=== PATIENT | male | born 1990 | race Hispanic/Latino ===

== ENCOUNTER 2023-03-13 20:35 | Emergency (ER) | payer OTHER ==
[~2023-03-13] VITALS: Ht 172.7 cm; Wt 79.4 kg
[2023-03-13] MEDS ORDERED: ONDANSETRON 4MG INJ IVP ONE (21:30)
[2023-03-13] MEDS ORDERED: MORPHINE 2 MG SYG IVP ONE (21:30)
[2023-03-13 21:54] VITALS: BP 122/78
[2023-03-13] MEDS ORDERED: IBUP-1493 PO ×2 (22:02→22:14)
[2023-03-13] MEDS ORDERED: TRAM50TA4 PO ×2 (22:02→22:14)
[2023-03-20] MEDS ORDERED: CITA-107 PO (11:53)
[2023-03-20] MEDS ORDERED: HYDR-3421 PO (11:53)
[2023-03-20] MEDS ORDERED: ALBUTEROL IH (11:53)
== END 2023-03-13 22:35 | disposition home or self-care (01) ==
LOC: EDBD 20:35 → EDH 20:35
DX: S42.021A Displaced fracture of shaft of right clavicle, initial encounter for closed fracture (principal); V18.4XXA Pedal cycle driver injured in noncollision transport accident in traffic accident, initial encounter; Y93.55 Activity, bike riding; Y92.89 Other specified places as the place of occurrence of the external cause; Y99.8 Other external cause status
CPT/HCPCS: 99284; 96374; 96375; 73000; 73090; 73060; 73030; J2270; J2405; 29105

== ENCOUNTER 2023-03-18 11:25 | Emergency (ER) | payer OTHER ==
[~2023-03-18] VITALS: Ht 172.7 cm; Wt 83.9 kg
[~2023-03-18 11:25] MED LIST: IBUP-1493 PO; TRAM50TA4 PO
[2023-03-18 15:41] VITALS: BP 130/80
[2023-03-20] MEDS ORDERED: ALBUTEROL IH (11:53)
[2023-03-20] MEDS ORDERED: CITA-107 PO (11:53)
[2023-03-20] MEDS ORDERED: HYDR-3421 PO (11:53)
== END 2023-03-18 15:43 | disposition home or self-care (01) ==
LOC: EDH 11:25
DX: S09.8XXA Other specified injuries of head, initial encounter (principal); F41.9 Anxiety disorder, unspecified; F32.A Depression, unspecified; Z79.899 Other long term (current) drug therapy; W18.39XA Other fall on same level, initial encounter; Y93.55 Activity, bike riding; Y92.488 Other paved roadways as the place of occurrence of the external cause; Y99.8 Other external cause status
CPT/HCPCS: 70450; 72125

== ENCOUNTER 2023-03-22 08:06 | Day surgery (SDC) | payer OTHER ==
[2023-03-20 11:02] LABS: BASOPHILS % (AUTO) 0.6 % (0.0-5.0); CREATININE 1.4 mg/dL (0.5-1.5); CRP QUANTITATIVE 9.9 mg/L (0.00-9.0); EOSINOPHILS % (AUTO) 2.4 % (0.0-8.0); HEMATOCRIT 47.4 % (42-54); LYMPHOCYTES % (AUTO) 18.8 % (21.0-51.0); MEAN CORPUSCULAR HEMOGLOBIN 32.5 pg (27.0-33.0); MEAN CORPUSCULAR HGB CONC 34.2 g/dL (32.0-36.0); MONOCYTES % (AUTO) 6.2 % (3.0-13.0); NEUTROPHILS % (AUTO) 71.6 % (40.0-77.0); PLATELET COUNT (AUTO) 212 K/uL (130-400); POTASSIUM 4.1 mmol/L (3.5-5.1); RED BLOOD CELL COUNT(AUTO) 4.99 MIL/uL (4.50-6.20); RED CELL DISTRIBUTION WIDTH 11.6 % (11.0-15.5); WHITE BLOOD COUNT (AUTO) 6.8 K/uL (4.8-10.8)
[2023-03-20 11:50] VITALS: BP 153/95
[2023-03-22] VITALS (19 sets, daily range): BP systolic 122–155; BP diastolic 77–101
[~2023-03-22] VITALS: Ht 172.7 cm; Wt 81.8 kg
[~2023-03-22 08:06] MED LIST changes: +ALBUTEROL IH; +CITA-107 PO; +HYDR-3421 PO; -IBUP-1493 PO; -TRAM50TA4 PO
[2023-03-22] MEDS ORDERED: LACTATED RINGERS 1000ML 1,000 ML IV ONE (08:53)
[2023-03-22] MEDS ORDERED: HYDROMORPHONE 1 MG INJ ONE (08:55)
[2023-03-22] MEDS ORDERED: FAMOTIDINE 20MG VIAL IV ONE (08:56)
[2023-03-22] MEDS ORDERED: ROPIVACAINE 0.5% 5MG/ML 30ML IJ ONE (09:00)
[2023-03-22] MEDS: CEFAZOLIN SODIUM 2 GM VIAL ONE ×2 (09:02→09:30)
[2023-03-22] MEDS ORDERED: OMEP20CA12 PO (09:03)
[2023-03-22] MEDS ORDERED: GLYCOPYRROLATE 1 MG/5 ML SYRINGE ONE ×2 (09:04→12:52)
[2023-03-22] MEDS ORDERED: LIDOCAINE PF 100MG/5ML (2%) SYRINGE 5ML ONE (09:04)
[2023-03-22] MEDS ORDERED: MIDAZOLAM HCL 1 MG/ML 2ML VIAL ONE (09:05)
[2023-03-22] MEDS ORDERED: ROCURONIUM 10MG/1ML SYR 10 MG/ML ML ONE ×2 (09:05→10:46)
[2023-03-22] MEDS ORDERED: PROPOFOL 10 MG/ML 20ML VIAL IV ONE (09:05)
[2023-03-22] MEDS ORDERED: FENTANYL CITRATE PF 50 MCG/1 ML 2ML VIAL ONE ×2 (09:05→13:43)
[2023-03-22] MEDS ORDERED: ONDANSETRON 4MG INJ ONE ×2 (10:15→14:10)
[2023-03-22] MEDS ORDERED: HYDR-4060 PO (12:49)
[2023-03-22] MEDS ORDERED: BUPIVACAINE/PF 0.25% 10ML VIAL IJ ONE (12:51)
[2023-03-22] MEDS ORDERED: NEOSTIGMINE 5MG/5ML SYR IV ONE (12:52)
[2023-03-22] MEDS ORDERED: MEPERIDINE-PF 25 MG/ML SYG ONE (13:03)
[2023-03-22] MEDS ORDERED: KETOROLAC 30MG VIAL (30MG/ML) ONE (14:21)
[2023-03-22] MEDS ORDERED: METOCLOPRAMIDE 10 MG/2 ML VIAL ONE (14:21)
[2023-03-23] MEDS ORDERED: ACET-2079 PO (12:43)
== END 2023-03-22 15:20 | disposition home or self-care (01) ==
LOC: DAH 08:06
PROVIDERS: ATTEND Student in an Organized Health Care Education/Training Program
DX: S42.021A Displaced fracture of shaft of right clavicle, initial encounter for closed fracture (principal); F41.8 Other specified anxiety disorders; F32.A Depression, unspecified; F12.90 Cannabis use, unspecified, uncomplicated; X58.XXXA Exposure to other specified factors, initial encounter; Y93.89 Activity, other specified; Y92.89 Other specified places as the place of occurrence of the external cause; Y99.8 Other external cause status; Z20.822 Contact with and (suspected) exposure to COVID-19; Z79.899 Other long term (current) drug therapy; Z98.890 Other specified postprocedural states
CPT/HCPCS: 82040; 80048; 85025; 84134; 86140; 87426; 36415; 23515; 64415; 73000; C1713 ×7; A4663; A4565; A4606; J7120; J3490 ×3; J3010 ×2; J2710; J2001; J2250; J2704; J2405 ×2; J1885; J2175; J2765; J2795; J0690; C1776 ×2; A4649 ×2; A4215; A4223; A4222; A4221; J1170

== ENCOUNTER 2023-03-23 10:05 | Emergency (ER) | payer OTHER ==
[~2023-03-23] VITALS: Ht 172.7 cm; Wt 81.6 kg
[~2023-03-23 10:05] MED LIST changes: -ALBUTEROL IH; -HYDR-3421 PO; +HYDR-4060 PO; +OMEP20CA12 PO
[2023-03-23] MEDS ORDERED: HYDROCODONE/ACETAMINOPHEN 7.5/325 MG TAB PO ONE (11:30)
[2023-03-23] MEDS ORDERED: ACET-2079 PO (12:43)
[2023-03-23 13:16] VITALS: BP 136/78
== END 2023-03-23 13:18 | disposition home or self-care (01) ==
LOC: EDH 10:05
DX: S42.021A Displaced fracture of shaft of right clavicle, initial encounter for closed fracture (principal); F41.9 Anxiety disorder, unspecified; F32.A Depression, unspecified; Z79.899 Other long term (current) drug therapy; V29.99XA Rider (driver) (passenger) of other motorcycle injured in unspecified traffic accident, initial encounter; Y93.89 Activity, other specified; Y92.89 Other specified places as the place of occurrence of the external cause; Y99.8 Other external cause status

== ENCOUNTER 2024-09-14 02:44 | Emergency (ER) | payer OTHER ==
[~2024-09-14] VITALS: Ht 172.7 cm; Wt 72.6 kg
[~2024-09-14 02:44] MED LIST changes: +ACET-2079 PO
[2024-09-14] MEDS ORDERED: AMOX1TAB16 PO (03:30)
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
[2024-09-14] MEDS: AMOX/CLAV 875/125MG TAB PO ONE (03:33)
[2024-09-14] MEDS: HYDROcodone/APAP 5/325 1 TAB TABLET PO ONE (03:34)
[2024-09-14 03:47] VITALS: BP 120/77; PULSE 69; RESP 16; TEMP 98.2; O2SAT 100
[2024-09-14] MEDS: DIPH,PERTUSS(ACELL),TET VAC/PF 0.5 ML VIAL IM ONE (04:02)
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
== END 2024-09-14 04:11 | disposition home or self-care (01) ==
LOC: EDH 02:44
DX: T21.26XA Burn of second degree of male genital region, initial encounter (principal); T21.16XA Burn of first degree of male genital region, initial encounter; F32.A Depression, unspecified; Z79.899 Other long term (current) drug therapy; X19.XXXA Contact with other heat and hot substances, initial encounter; Y93.G3 Activity, cooking and baking; Y92.89 Other specified places as the place of occurrence of the external cause; Y99.8 Other external cause status
CPT/HCPCS: 90471; 90715; 99283